=== PATIENT | female | born 1970 | race Caucasian/White ===

== ENCOUNTER 2022-12-16 08:31 | Day surgery (SDC) | payer OTHER ==
[~2022-12-16] VITALS: Ht 165.1 cm; Wt 102.1 kg
[~2022-12-16 08:31] MED LIST: BENADRYL PO; BUPIVACAINE /PF 0.25% 30 ML VIAL INJ ONE; CEFAZOLIN SOD 2 GM in D5W 50 ML IV ONE; DEXAMETHASONE SOD PHOSPHATE 4 MG/ML VIAL ONE; KETOROLAC TROMETHAMINE 30 MG VIAL ONE; METOCLOPRAMIDE HCL 10 MG/2 ML VIAL ONE; MIDAZOLAM HCL/PF 2 MG/2 ML SYRINGE ONE; NS 1000 ML IV.SOLN IV ONE; NS IRRIG SOLN 1000 ML IR ONE; ONDANSETRON HCL 4 MG/2 ML VIAL ONE; PREN1TAB49 PO; PROPOFOL 200MG/ 20ML VIAL (DIPRIVAN) IV ONE; ROCURONIUM BROMIDE 10 MG/ML (ZEMURON) ONE; SEVOFLURANE 15 MIN GAS INH ONE; SUGAMMADEX SODIUM 200 MG/2 ML VIAL IV ONE; WATER FOR IRRIGATION,STERILE 1,000 ML IRRIG.SOLN IR ONE; fentaNYL CITRATE/PF 100 MCG/2 ML AMP ONE
[2022-12-16 09:04] LABS: HCG,QUAL RESULT NEGATIVE (NEGATIVE)
[2022-12-16 09:10] VITALS: O2SAT 96
[2022-12-16] MEDS ORDERED: DEXAMETHASONE SOD PHOSPHATE 4 MG/ML VIAL ONE (11:16)
[2022-12-16] MEDS ORDERED: SEVOFLURANE 15 MIN GAS INH ONE (11:16)
[2022-12-16] MEDS ORDERED: MIDAZOLAM HCL/PF 2 MG/2 ML SYRINGE ONE (11:16)
[2022-12-16] MEDS ORDERED: KETOROLAC TROMETHAMINE 30 MG VIAL ONE (11:16)
[2022-12-16] MEDS ORDERED: NS IRRIG SOLN 1000 ML IR ONE (11:16)
[2022-12-16] MEDS ORDERED: ROCURONIUM BROMIDE 10 MG/ML (ZEMURON) ONE (11:16)
[2022-12-16] MEDS ORDERED: fentaNYL CITRATE/PF 100 MCG/2 ML AMP ONE (11:16)
[2022-12-16] MEDS ORDERED: PROPOFOL 200MG/ 20ML VIAL (DIPRIVAN) IV ONE (11:16)
[2022-12-16] MEDS ORDERED: SUGAMMADEX SODIUM 200 MG/2 ML VIAL IV ONE (11:16)
[2022-12-16] MEDS ORDERED: BUPIVACAINE /PF 0.5% 30 ML VIAL ONE (11:16)
[2022-12-16] MEDS ORDERED: LR 1,000 ML IV SCH (12:00)
[2022-12-16] MEDS ORDERED: MEPERIDINE HCL/PF 25 MG/ML DISP.SYRIN IVP PRN (12:00)
[2022-12-16] MEDS ORDERED: HYDROmorphone 1 MG/ML INJ. CARTRIDGE IVP PRN (12:00)
[2022-12-16] MEDS ORDERED: ONDANSETRON HCL 4 MG/2 ML VIAL IVP PRN (12:00)
[2022-12-16] MEDS ORDERED: KETOROLAC TROMETHAMINE 30 MG VIAL IVP PRN (12:00)
[2022-12-16] MEDS ORDERED: HYDROcodone/ACETAMIN 5-325 MG TAB (NORCO/ VICODIN) PO PRN ×2 (12:30)
[2022-12-16] MEDS ORDERED: D5/0.45 NS 1,000 ML IV SCH (13:00)
[2022-12-16 16:14] VITALS: BP_SYST 127; PULSE 81; RESP 17
== END 2022-12-16 14:40 | disposition home or self-care (01) ==
LOC: SDS 08:31
PROVIDERS: ATTEND Colon & Rectal Surgery
DX: K43.0 Incisional hernia with obstruction, without gangrene (principal); F17.210 Nicotine dependence, cigarettes, uncomplicated; F33.9 Major depressive disorder, recurrent, unspecified; E11.9 Type 2 diabetes mellitus without complications; E78.5 Hyperlipidemia, unspecified; E66.9 Obesity, unspecified; Z68.37 Body mass index [BMI] 37.0-37.9, adult
CPT/HCPCS: 87081; 49594; 64488; 82962; 84703; 88302; J3490 ×3; J0690; J1100; J1885; J2765; J3465; J2405; J2704; J3010; J7060; J7030; C1781